=== PATIENT | female | born 1985 | race Caucasian/White ===

== ENCOUNTER 2021-05-05 12:19 | Emergency (ER) | payer MEDICAID, SELFPAY ==
[2021-05-05 12:50] VITALS: BP 147/103; PULSE 93; RESP 18; TEMP 36.8; O2SAT 96; BMI 41.5
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
== END 2021-05-05 15:42 | disposition home or self-care (01) ==
PROVIDERS: Emergency Provider Family Medicine
DX: S06.0X9A Concussion with loss of consciousness of unspecified duration, initial encounter (principal); S01.511A Laceration without foreign body of lip, initial encounter; S70.02XA Contusion of left hip, initial encounter; S00.12XA Contusion of left eyelid and periocular area, initial encounter; Y04.8XXA Assault by other bodily force, initial encounter; F17.210 Nicotine dependence, cigarettes, uncomplicated
CPT/HCPCS: 70450; 70486; 71045; 72125; 99283

== ENCOUNTER → 2021-07-12 11:21 | Outpatient (BNVA) | payer OTHER, SELFPAY | PROVIDERS: Visit Provider Nurse Practitioner | DX: Z20.822 Contact with and (suspected) exposure to COVID-19 (principal) | CPT/HCPCS: 87635 ==

== ENCOUNTER 2021-08-01 22:45 | Emergency (ER) | payer MEDICAID, SELFPAY ==
[2021-08-01 22:47] VITALS: BP 113/73; PULSE 123; RESP 19; TEMP 36.8; O2SAT 95; BMI 39.9
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
[2021-08-02 00:02] LABS: Basophils % 0.3 %; Nucleated Red Blood Cells % 0 %
[2021-08-02 00:05] LABS: Basophils # 0.1 10^3/uL (0.0-0.1); Eosinophils # 0.2 10^3/uL (0.0-0.8); Eosinophils % 1.3 %; Hematocrit 47.7 % (37.0-47.0); Hemoglobin 16.1 g/dL (11.5-15.3); Lymphocytes # 4.5 10^3/uL (0.8-4.8); Lymphocytes % 31.3 %; Mean Corpuscular HGB Conc 33.8 g/dL (30.0-36.0); Mean Corpuscular Hemoglobin 31.6 pg (28.0-34.0); Mean Corpuscular Volume 93.7 fl (81-99); Mean Platelet Volume 11.3 fL (7.4-10.4); Monocytes # 0.9 10^3/uL (0.2-0.9); Monocytes % 6.4 %; Neutrophils # 8.64 10^3/uL (1.8-7.7); Neutrophils % 60.3 %; Platelet Count 248 10^3/cmm (130-400); Red Blood Count 5.09 10^6/uL (4.1-5.3); Red Cell Distribution Width 15.7 % (12.1-15.1); White Blood Count 14.3 10^3/uL (4.0-10.0)
[2021-08-02 00:10] LABS: HCG, Serum Qual Negative (Negative)
[2021-08-02 00:14] LABS: Alanine Aminotransferase 54 U/L (0-33); Albumin Level 4.2 g/dL (3.5-5.2); Alkaline Phosphatase 97 IU/L (35-105); Anion Gap 23.7 (5-19); Aspartate Amino Transferase 51 U/L (0-32); Blood Urea Nitrogen 7 mg/dL (6-20); Calcium 7.5 mg/dL (8.5-10.5); Carbon Dioxide 18 mmol/L (22-29); Chloride 102 mmol/L (98-107); Globulin 3.1 g/dL (1.3-4.6); Glomerular Filtration Rate 81.2 mL/min (90-130); Glucose 109 mg/dL (65-115); Osmolality Calculated 289 mOsm/kg (285-295); Potassium 3.7 mmol/L (3.5-5.1); Sodium 140 mmol/L (136-145); Total Bilirubin 0.2 mg/dL (0.15-1.2); Total Protein 7.3 g/dL (6.6-8.7)
[2021-08-02] MEDS: iohexol 300 mg/mL 100 mL Btl IV (00:21)
[2021-08-02 00:43] LABS: Slide Review Slide Review Perform
[2021-08-02 01:04] VITALS: BP 110/73; PULSE 130; RESP 20; O2SAT 97
[2021-08-02] MEDS: morphine 4 mg/mL SDV 1 mL IVP ×2 (01:06→03:36)
[2021-08-02] MEDS: sodium chloride 0.9% 1,000 ML 999 ML IV (01:07)
[2021-08-02 03:37] VITALS: BP 112/74; PULSE 98; RESP 18; O2SAT 96
== END 2021-08-02 03:37 | disposition home or self-care (01) ==
PROVIDERS: Emergency Provider Emergency Medicine
DX: S41.112A Laceration without foreign body of left upper arm, initial encounter (principal); F17.210 Nicotine dependence, cigarettes, uncomplicated; V89.2XXA Person injured in unspecified motor-vehicle accident, traffic, initial encounter
CPT/HCPCS: 12005; 70450; 71260; 72125; 73070; 73090; 73110; 74177; 80053; 84703; 85025; 96361; 96374; 96376; 99283; J2270; J7030; Q9967

== ENCOUNTER 2021-08-06 11:16 | Inpatient (IN) | payer MEDICAID, SELFPAY ==
[2021-08-06] VITALS (9 sets, daily range): BP systolic 117–133; BP diastolic 72–87; PULSE 86–92; RESP 16–17; TEMP 36.6–37.2; O2SAT 97–100; BMI 43.2
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
[2021-08-06 12:37] LABS: Basophils % 0.4 %; Eosinophils # 0.2 10^3/uL (0.0-0.8); Eosinophils % 2.3 %; Hematocrit 40.8 % (37.0-47.0); Hemoglobin 13.5 g/dL (11.5-15.3); Lymphocytes # 2.3 10^3/uL (0.8-4.8); Lymphocytes % 21.7 %; Mean Corpuscular HGB Conc 33.1 g/dL (30.0-36.0); Mean Corpuscular Hemoglobin 31.3 pg (28.0-34.0); Mean Corpuscular Volume 94.7 fl (81-99); Mean Platelet Volume 11.5 fL (7.4-10.4); Monocytes # 0.6 10^3/uL (0.2-0.9); Monocytes % 5.8 %; Neutrophils # 7.35 10^3/uL (1.8-7.7); Neutrophils % 69.3 %; Nucleated Red Blood Cells % 0 %; Platelet Count 225 10^3/cmm (130-400); Red Blood Count 4.31 10^6/uL (4.1-5.3); Red Cell Distribution Width 15.6 % (12.1-15.1); White Blood Count 10.6 10^3/uL (4.0-10.0)
[2021-08-06] MEDS: tetanus-diphtheria tox (adult) 0.5 mL SDV IM (12:39)
[2021-08-06 13:04] LABS: Lactate (Lactic Acid level) 0.7 mmol/L (0.5-2.2)
[2021-08-06 13:05] LABS: Alanine Aminotransferase 52 U/L (0-33); Albumin Level 3.7 g/dL (3.5-5.2); Alkaline Phosphatase 100 IU/L (35-105); Anion Gap 17.6 (5-19); Aspartate Amino Transferase 55 U/L (0-32); Blood Urea Nitrogen 9 mg/dL (6-20); Calcium 6.4 mg/dL (8.5-10.5); Carbon Dioxide 22 mmol/L (22-29); Chloride 104 mmol/L (98-107); Globulin 2.6 g/dL (1.3-4.6); Glomerular Filtration Rate 139.6 mL/min (90-130); Glucose 74 mg/dL (65-115); Osmolality Calculated 285 mOsm/kg (285-295); Potassium 4.6 mmol/L (3.5-5.1); Sodium 139 mmol/L (136-145); Total Bilirubin 0.5 mg/dL (0.15-1.2); Total Protein 6.3 g/dL (6.6-8.7)
[2021-08-06] MEDS: iohexol 300 mg/mL 100 mL Btl IV (13:20)
[2021-08-06] MEDS: vancomycin 1,000 MG in sodium chloride 0.9% 250 ML 250 MG IV (13:27)
--- NOTE | 2021-08-06 14:10 | XR_ITS ---
WS: [id number] XR hand LT min 3V* [id number] REASON FOR EXAM: trauma; possible hamate fx on CT imaging FINDINGS: Hamate fracture cannot be identified on current or previous plain film of the wrist. The CT of the fr acture is definitive. No other significant bony or joint abnormality is identified. XR/XR hand LT min 3V* [id number] IMPRESSION: Current and previous plain film do not demonstrate the left hamate fracture. If a plain film definition of the hamate fracture is required, a carpal tunnel vi ew of the left wrist with demonstrate the abnormality.
[2021-08-06 15:19] LABS: C Reactive Protein 134.4 mg/L (0.0-4.9)
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
[2021-08-06] MEDS: morphine 4 mg/mL SDV 1 mL IVP (16:12)
--- NOTE | 2021-08-06 19:57 | PC.PHAR ---
Vancomycin is dosed at 1500mg IVPB every 8 hours to produce a predicted trough level of 13.24 (population based pharmacokinetic analysis). A trough level has been ordered from the lab to be obtained before the fourth dose to confirm and adjust if needed.
[2021-08-06] MEDS: ketorolac 30 mg/mL INJ 15 MG IVP (20:00)
[2021-08-06] MEDS: enoxaparin 40 mg/0.4 mL Syringe SUBCUT (20:01)
[2021-08-06] MEDS: TRAMadol 50 mg Tablet PO (20:01)
[2021-08-06] MEDS: nicotine 14 mg Patch 1 PATCH TRANSDERMA (20:54)
[2021-08-06] MEDS: aztreonam 2,000 MG in sodium chloride 0.9% (plus) 100 ML 200 MG IV (21:12)
[2021-08-06] MEDS: vancomycin 1,500 MG/300 ML PIGGYBACK 150 MG IV (21:42)
[2021-08-06] MEDS: clindamycin 600 MG/50 ML PREMIX 100 MG IV (23:39)
[2021-08-07] VITALS (9 sets, daily range): BP systolic 97–128; BP diastolic 66–88; PULSE 84–94; RESP 17–18; TEMP 36.6–36.9; O2SAT 94–98
[2021-08-07] MEDS: TRAMadol 50 mg Tablet PO ×2 (00:05→04:46)
[2021-08-07] MEDS: vancomycin 1,500 MG/300 ML PIGGYBACK 150 MG IV (03:52)
[2021-08-07 05:18] LABS: Basophils % 0.4 %; Eosinophils # 0.2 10^3/uL (0.0-0.8); Eosinophils % 2.5 %; Hematocrit 36.7 % (37.0-47.0); Hemoglobin 11.9 g/dL (11.5-15.3); Lymphocytes # 2.4 10^3/uL (0.8-4.8); Mean Corpuscular HGB Conc 32.4 g/dL (30.0-36.0); Mean Corpuscular Hemoglobin 31.2 pg (28.0-34.0); Mean Corpuscular Volume 96.3 fl (81-99); Mean Platelet Volume 11.2 fL (7.4-10.4); Monocytes # 0.6 10^3/uL (0.2-0.9); Monocytes % 6.9 %; Neutrophils % 61.8 %; Nucleated Red Blood Cells % 0 %; Platelet Count 204 10^3/cmm (130-400); Red Blood Count 3.81 10^6/uL (4.1-5.3); Red Cell Distribution Width 15.6 % (12.1-15.1); White Blood Count 8.6 10^3/uL (4.0-10.0)
[2021-08-07 05:39] LABS: Anion Gap 15.9 (5-19); Blood Urea Nitrogen 10 mg/dL (6-20); C Reactive Protein 78.3 mg/L (0.0-4.9); Carbon Dioxide 22 mmol/L (22-29); Chloride 103 mmol/L (98-107); Glomerular Filtration Rate 113.1 mL/min (90-130); Glucose 88 mg/dL (65-115); Osmolality Calculated 282 mOsm/kg (285-295); Potassium 3.9 mmol/L (3.5-5.1); Sodium 137 mmol/L (136-145)
[2021-08-07 05:41] LABS: Procalcitonin 2.73 ng/mL (0-0.5)
[2021-08-07 05:51] LABS: Calcium 5.7 mg/dL (8.5-10.5)
[2021-08-07] MEDS: calcium carbonate 500 mg Chew Tablet PO ×4 (06:31→23:23)
[2021-08-07] MEDS: clindamycin 600 MG/50 ML PREMIX 100 MG IV ×3 (06:31→22:51)
[2021-08-07] MEDS: morphine 4 mg/mL SDV 1 mL 1 MG IVP (07:40)
[2021-08-07] MEDS: aztreonam 2,000 MG in sodium chloride 0.9% (plus) 100 ML 200 MG IV ×2 (07:48→19:32)
[2021-08-07] MEDS: nicotine 14 mg Patch 1 PATCH TRANSDERMA (07:48)
[2021-08-07 09:11] LABS: Ionized Calcium 0.8 mmol/L (1.1-1.4)
--- NOTE | 2021-08-07 11:04 | P.PN_ITS ---
Subjective Subjective: Interval history: Patient is endorsing improvement in her hyperemia of left arm however swelling has not improved, no fever no leukocytosis, cultures pending Not endorsing nicotine craving she has nicotine patch on We will add thiamine and folic acid will give another dose of Decadron today Vitals/I&O/Wt Last Vital Signs Temp 97.8 F 08/07/21 07:35 Pulse 86 08/07/21 07:35 Resp 17 08/07/21 07:35 BP 116/80 08/07/21 07:35 Pulse Ox 98 08/07/21 07:35 08/06/21 08/07/21 08/07/21 22:59 06:59 14:59 Intake Total 240 / 490 1230 / 1720 570 / 570 Balance 240 / 490 1230 / 1720 570 / 570 Weight last 48 hrs Weight 117.934 kg Physical Exam Narrative: EXAM NARRATIVE: Patient is sitting comfortably in her bed EOMI, PERRLA Appropriate mood and affect S1, S2 No audible stridor or wheezing Saturating well on room air Left arm with purulent cellulitis Hyperemia seems to be improved and regressing from the borders, swelling from tip of fingers up to the elbow pretty much the same as yesterday I do not see severe worsening at this point, she is able to make a fist with some difficulty, nontender, blisters noticed as well No joint swelling No neurological deficits Data : 08/07/21 04:47 08/07/21 04:47 Micro: Microbiology 08/06/21 12:18 Gram Stain - Final Arm - Left Wound Culture - Preliminary 08/06/21 12:16 Blood Culture - Preliminary Blood SPECIMEN COLLECTED 08/06/21 12:15 Blood Culture - Preliminary Blood SPECIMEN COLLECTED A&P Assessment and plan (1) Obesity: Status: Acute (2) Infected laceration: Status: Acute (3) Cellulitis of arm, left: Status: Acute (4) Alcohol abuse: Status: Acute (5) Nicotine dependence: Status: Acute Additional A&P Information Purulent cellulitis of left arm Continue vancomycin aztreonam and clindamycin for today Follow-up with blood cultures No vascular compromise of left arm noticed Afebrile no leukocytosis Procalcitonin high noted CRP trending down In case of worsening of her cellulitis she will need hand surgeon/ortho for evaluation Hypocalcemia: We will give 1 g calcium gluconate, requested ionized calcium to rule out lab better Albumin 3.7 Nicotine craving: Currently has nicotine patch Alcohol abuse we will start thiamine and folic acid Full code Cardiac diet secondary to BMI DVT prophylaxis Lovenox Attestations Medical Necessity Statement*: Anticipating discharge over the weekend if she is clinically better Time Spent in Patient Care: 16 - 35 minutes Coding Level of Care Code Acute Medication Reconciliation Technician for g Fwd Diagnoses Obesity E66.9 Infected laceration T14.8XXA; L08.9 Cellulitis of arm, left L03.114 Alcohol abuse F10.10 Nicotine dependence F17.200
[2021-08-07] MEDS: HYDROmorphone 1 mg/mL INJ 1 mL 0.4 MG IVP ×4 (11:27→23:23)
[2021-08-07] MEDS: vancomycin 1,500 MG/300 ML PIGGYBACK 600 MG IV ×2 (11:27→20:45)
[2021-08-07] MEDS: dexamethasone 10 mg/mL INJ IVP (11:28)
--- NOTE | 2021-08-07 14:32 | PC.SOCIAL ---
FAA given to patient.
--- NOTE | 2021-08-07 15:34 | PC.CHAP ---
Pastoral Care Encounter/Spiritual Assessment Type of Contact [] Declined supply room clerk visit [] Patient/Family/Request visit [] Outpatient visit [] Follow-up visit [] Physician referral [] Code/Alert [] Routine visit [] Staff referral [] Actively dying [xx] Patient sleeping [] Family support [] [] Out of room [] Palliative care [] [] Receiving care in room [] Pre-surgical visit [] Trauma [] Long length of stay [] ICU visit [] Other: Relational/Emotional Strength [] Patient feels connected with others/family/visitors/staff [] Distress [] Loneliness/isolation [] Abandonment Spirituality of Patient [] Person of Juani [] Attends Advent of their [place] [] Believes in Prayer [] Reads Bible or Baptist materials [] There are Spiritual issues to be addressed Guide Dog Mobility Instructor Interventions [] Prayer [] Active listening [] Non-anxious presence [] Spiritual/emotional support [] Crisis/trauma care [] Spiritual counseling [] Bereavement support [] Provided bereavement packet [] Provided Bible/devotional materials [] Provided toy/stuffed animal, coloring book to patient or family member [] Provided Communion [] Anointing/[place] [] Salvation [] Completed spiritual assessment [] Other: Impact on Illness or Injury [] Angry [] Fearful [] Anxious [] Often cries [] Exhaustion [] Unable to work [] Unable to attend sikh [] Unable to walk/stand [] Unable to read [] Unable to drive [] Unable to eat/drink [] Unable to sleep [] Unable to be with family [] Patient intubated [] Other: Summary Patient in medicated sleep. Follow up later. Time spent with patient
--- NOTE | 2021-08-07 16:23 | PC.RESP ---
SMOKING CESSATION INFORMATION SENT TO PATIENT.
[2021-08-07] MEDS: enoxaparin 40 mg/0.4 mL Syringe SUBCUT (19:33)
[2021-08-07 19:34] LABS: Vancomycin Trough 13.6 ug/mL (10-15)
[2021-08-08] VITALS (9 sets, daily range): BP systolic 120–130; BP diastolic 68–84; PULSE 73–88; RESP 17–19; TEMP 36.4–36.8; O2SAT 94–98
[2021-08-08] MEDS: vancomycin 1,500 MG/300 ML PIGGYBACK 150 MG IV (03:28)
[2021-08-08 05:10] LABS: Basophils % 0.1 %; Hematocrit 40.9 % (37.0-47.0); Hemoglobin 13.7 g/dL (11.5-15.3); Lymphocytes # 1.4 10^3/uL (0.8-4.8); Lymphocytes % 12.7 %; Mean Corpuscular HGB Conc 33.5 g/dL (30.0-36.0); Mean Corpuscular Hemoglobin 30.8 pg (28.0-34.0); Mean Corpuscular Volume 91.9 fl (81-99); Mean Platelet Volume 11.4 fL (7.4-10.4); Monocytes # 0.5 10^3/uL (0.2-0.9); Monocytes % 4.5 %; Neutrophils # 9.07 10^3/uL (1.8-7.7); Nucleated Red Blood Cells % 0 %; Platelet Count 252 10^3/cmm (130-400); Red Blood Count 4.45 10^6/uL (4.1-5.3); White Blood Count 11.1 10^3/uL (4.0-10.0)
[2021-08-08] MEDS: HYDROmorphone 1 mg/mL INJ 1 mL 0.4 MG IVP ×2 (05:30→10:56)
[2021-08-08] MEDS: calcium carbonate 500 mg Chew Tablet PO ×4 (05:30→23:18)
[2021-08-08] MEDS: clindamycin 600 MG/50 ML PREMIX 100 MG IV ×3 (06:23→23:13)
[2021-08-08 07:02] LABS: Alanine Aminotransferase 44 U/L (0-33); Albumin Level 3.6 g/dL (3.5-5.2); Alkaline Phosphatase 108 IU/L (35-105); Anion Gap 18.5 (5-19); Aspartate Amino Transferase 29 U/L (0-32); Blood Urea Nitrogen 9 mg/dL (6-20); C Reactive Protein 56.6 mg/L (0.0-4.9); Calcium 7.6 mg/dL (8.5-10.5); Carbon Dioxide 23 mmol/L (22-29); Chloride 99 mmol/L (98-107); Globulin 3.1 g/dL (1.3-4.6); Glomerular Filtration Rate 139.6 mL/min (90-130); Glucose 109 mg/dL (65-115); Osmolality Calculated 281 mOsm/kg (285-295); Potassium 4.5 mmol/L (3.5-5.1); Sodium 136 mmol/L (136-145); Total Bilirubin 0.2 mg/dL (0.15-1.2); Total Protein 6.7 g/dL (6.6-8.7)
[2021-08-08 07:09] LABS: Procalcitonin 1.18 ng/mL (0-0.5)
[2021-08-08] MEDS: aztreonam 2,000 MG in sodium chloride 0.9% (plus) 100 ML 200 MG IV (07:34)
[2021-08-08] MEDS: thiamine 100 mg Tablet PO (07:35)
[2021-08-08] MEDS: folic acid 1 mg Tablet PO (07:35)
[2021-08-08] MEDS: sennosides-docusate Tablet 1 TAB PO (07:35)
[2021-08-08] MEDS: nicotine 14 mg Patch 1 PATCH TRANSDERMA (07:35)
--- NOTE | 2021-08-08 13:23 | PM.PN ---
Subjective Subjective: Interval history: Patient seen and examined this morning. There were no acute events overnight. 1 out of 3 occult blood culture bottles positive for gram-positive bacilli. Patient states her arm is appearing worse to her and the wound has worsened as well. She is now having puslike discharge. Afebrile overnight vitals stable no other complaints at this point. Vitals/I&O/Wt Last Vital Signs Temp 97.6 F 08/08/21 12:00 Pulse 79 08/08/21 12:00 Resp 18 08/08/21 12:00 BP 130/84 08/08/21 12:00 Pulse Ox 96 08/08/21 12:00 08/07/21 08/08/21 08/08/21 22:59 06:59 14:59 Intake Total 690 / 2040 350 / 2390 510 / 510 Balance 690 / 2040 350 / 2390 510 / 510 Physical Exam Narrative: EXAM NARRATIVE: General: Alert oriented x3, patient seen sitting up in bed appearing comfortable. HEENT: Normocephalic, atraumatic, EOMI, breathing room air Cardio: Regular rate rhythm, normal S1-S2, Respiratory: Good bilateral air entry, no wheezes no rhonchi appreciated GI: Abdomen soft, nontender, Behavior: Appropriate and cooperative Extremities: No edema or cyanosis Skin: Left arm with purulent cellulitis. Hyperemia seems to be improving compared to admission and has regressed significantly from the borders. Swelling of hand and left arm is also decreased compared to admission. Patient able to make a fist skilled nursing at this point with some difficulty. Few blisters noted on her arm as well draining pus and serosanguineous discharge. Sutured wounds appear worsened compared to admission. Data : 08/08/21 04:36 08/08/21 06:06 Micro: Microbiology 08/08/21 12:01 Blood Culture - Preliminary Blood SPECIMEN COLLECTED 08/08/21 11:57 Blood Culture - Preliminary Blood SPECIMEN COLLECTED 08/06/21 12:18 Gram Stain - Final Arm - Left Wound Culture - Preliminary 08/06/21 12:15 Blood Culture - Preliminary Blood 08/06/21 12:16 Blood Culture - Preliminary Blood NEGATIVE TO DATE A&P Assessment and plan (1) Cellulitis of arm, left: Status: Acute (2) Infected laceration: Status: Acute (3) Nicotine dependence: Status: Acute (4) Alcohol abuse: Status: Acute (5) Obesity: Status: Acute Additional A&P Information Blood culture 1 out of 3 bottles positive for gram-positive bacilli. Most likely a contaminant but will repeat blood culture x2 today. Wound culture showed rare gram-negative rods. We will discontinue aztreonam and vancomycin. We will continue patient on IV clindamycin for now. We will follow up on new blood cultures. No concern for compartment syndrome at this time as overall arm looks improved but the wounds have worsened. Patient has been afebrile with no leukocytosis. Will consult surgery for evaluation for debridement at this point. Case discussed with Dr. Najera on-call surgeon. Will await further recommendations. We will continue nicotine patch for now. Patient states is helping and she does not require anything more at this point. We will continue thiamine and folic acid for alcoholic history Fluids: Not indicated at this point Electrolytes: Replete as needed Nutrition: Cardiac diet secondary to high BMI Activity: Patient may ambulate at will DVT prophylaxis: Lovenox. Attestations Medical Necessity Statement*: Wound has worsened. Patient may require surgical debridement. Have consulted surgery will await further recommendations. Coding Level of Care Code Acute Tanbark Peeler for g Roni Diagnoses Cellulitis of arm, left L03.114 Infected laceration T14.8XXA; L08.9 Nicotine dependence F17.200 Alcohol abuse F10.10 Obesity E66.9
[2021-08-08] MEDS: ibuprofen 800 mg tablet PO (15:09)
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
[2021-08-08] MEDS: morphine IR 15 mg Tablet PO (17:08)
[2021-08-08] MEDS: enoxaparin 40 mg/0.4 mL Syringe SUBCUT (20:08)
[2021-08-09] VITALS (13 sets, daily range): BP systolic 95–143; BP diastolic 58–97; PULSE 75–92; RESP 16–18; TEMP 36.4–36.8; O2SAT 93–99
[2021-08-09] MEDS: morphine IR 15 mg Tablet PO ×2 (01:23→09:34)
[2021-08-09] MEDS: calcium carbonate 500 mg Chew Tablet PO ×4 (05:48→23:16)
[2021-08-09 05:51] LABS: Basophils % 0.5 %; Eosinophils # 0.1 10^3/uL (0.0-0.8); Eosinophils % 0.7 %; Hematocrit 39.3 % (37.0-47.0); Hemoglobin 12.8 g/dL (11.5-15.3); Lymphocytes # 3.1 10^3/uL (0.8-4.8); Lymphocytes % 37.3 %; Mean Corpuscular HGB Conc 32.6 g/dL (30.0-36.0); Mean Corpuscular Volume 95.2 fl (81-99); Monocytes # 0.5 10^3/uL (0.2-0.9); Neutrophils # 4.48 10^3/uL (1.8-7.7); Neutrophils % 53.8 %; Nucleated Red Blood Cells % 0 %; Platelet Count 256 10^3/cmm (130-400); Red Blood Count 4.13 10^6/uL (4.1-5.3); Red Cell Distribution Width 15.7 % (12.1-15.1); White Blood Count 8.3 10^3/uL (4.0-10.0)
[2021-08-09] MEDS: clindamycin 600 MG/50 ML PREMIX 100 MG IV ×3 (06:10→23:08)
[2021-08-09 06:26] LABS: Anion Gap 16.9 (5-19); Blood Urea Nitrogen 12 mg/dL (6-20); Calcium 8.1 mg/dL (8.5-10.5); Carbon Dioxide 23 mmol/L (22-29); Chloride 103 mmol/L (98-107); Glomerular Filtration Rate 113.1 mL/min (90-130); Glucose 74 mg/dL (65-115); Osmolality Calculated 284 mOsm/kg (285-295); Potassium 4.9 mmol/L (3.5-5.1); Sodium 138 mmol/L (136-145)
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
[2021-08-09] MEDS: sodium chloride 0.9% 1,000 ML 30 ML IV (07:48)
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
[2021-08-09 07:53] LABS: Slide Review Slide Review Perform
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
--- NOTE | 2021-08-09 08:47 | ANE.PACU2 ---
Inpatient post-anesthesia follow up: Airway intact: Yes Vital signs: Temperature 98.2 F Pulse Rate [Left R adial] 88 Pulse Rate [Monito r] 90 Pulse Rate 79 Respiratory Rate 18 Blood Pressure [Le ft Arm] 125/87 Blood Pressure 143/74 Pulse Oximetry 94 Oxygen Delivery Me thod Room Air Oxygen Flow Rate Fraction of Inspir ed Oxygen Hydration adequate: Yes Nausea and vomiting: No Pain level: 2 Mental status: Baseline
[2021-08-09] MEDS: morphine 4 mg/mL SDV 1 mL 1 MG IVP ×2 (11:24→21:24)
--- NOTE | 2021-08-09 12:05 | PM.PN ---
Subjective Subjective: Interval history: Patient seen and examined status post department procedure from this morning. She was sitting up in bed with arm wrapped in bandage. She stated that for the most part she is comfortable but her arm is starting to hurt now that the anesthesia has worn off. She can also feel her heartbeat in her arm at this point. She states she was given oral morphine yesterday but that made her vomit and nauseated and would not like to take that again. However this morning she had hydrocodone ordered by Dr. Najera but she opted to take the oral morphine instead. She would like her medication changed to IV if possible. Patient also feels that she is wheezing a little bit today. She has no other complaints at this time. Vitals/I&O/Wt Last Vital Signs Temp 98.2 F 08/09/21 08:40 Pulse 79 08/09/21 08:40 Resp 18 08/09/21 11:24 BP 143/74 08/09/21 08:40 Pulse Ox 94 08/09/21 08:40 08/08/21 08/09/21 08/09/21 22:59 06:59 14:59 Intake Total 320 / 1190 250 / 1440 142 / 142 Output Total 320 / 320 10 / 10 Balance 320 / 1190 -70 / 1120 132 / 132 Physical Exam Narrative: EXAM NARRATIVE: General: Alert oriented x3, patient seen sitting up in bed appearing comfortable. HEENT: Normocephalic, atraumatic, EOMI, breathing room air Cardio: Regular rate rhythm, normal S1-S2, Respiratory: Good bilateral air entry, mild wheezes heard at the bases bilaterally. GI: Abdomen soft, nontender, Behavior: Appropriate and cooperative Extremities: No edema or cyanosis Skin: Left arm with purulent cellulitis. Unable to examine the arm today due to Band-Aid. She is status post debridement procedure from 2 hours ago. I will take a look at the arm tomorrow when there is dressing change being done.. Data : 08/09/21 04:55 08/09/21 04:55 Micro: Microbiology 08/06/21 12:18 Gram Stain - Final Arm - Left Wound Culture - Final 08/08/21 12:01 Blood Culture - Preliminary Blood SPECIMEN COLLECTED 08/08/21 11:57 Blood Culture - Preliminary Blood SPECIMEN COLLECTED A&P Assessment and plan (1) Cellulitis of arm, left: Status: Acute (2) Infected laceration: Status: Acute (3) Nicotine dependence: Status: Acute (4) Alcohol abuse: Status: Acute (5) Obesity: Status: Acute Additional A&P Information Blood culture 1 out of 3 bottles positive for gram-positive bacilli. Most likely a contaminant. Repeat blood cultures are negative to date so far. Wound culture showed rare gram-negative rods. Continue patient on IV clindamycin for now. Patient has been afebrile with no leukocytosis. Patient is status post wound debridement procedure with Dr. Najera this morning. I will switch her pain medication to IV morphine just for today and switch to an NSAID by tomorrow. I will add a DuoNeb treatment for patient wheezing today. She does use albuterol MDI at home as needed. We will continue nicotine patch for now. Patient states is helping and she does not require anything more at this point. We will continue thiamine and folic acid for alcoholic history Fluids: Not indicated at this point Electrolytes: Replete as needed Nutrition: Cardiac diet secondary to high BMI Activity: Patient may ambulate at will DVT prophylaxis: Lovenox. Attestations Medical Necessity Statement*: Status post wound debridement procedure today. Planning for discharge tomorrow. Time Spent in Patient Care: less than 15 minutes Coding Level of Care Code Acute Youth Development Specialist for Roxanna Tamayo Diagnoses Cellulitis of arm, left L03.114 Infected laceration T14.8XXA; L08.9 Nicotine dependence F17.200 Alcohol abuse F10.10 Obesity E66.9
[2021-08-09] MEDS: ipratropium-albuterol 3 mL Neb INHALATION (14:50)
[2021-08-09] MEDS: HYDROcodone-acetaminophen 5-325 mg Tablet 1 TAB PO ×2 (15:17→20:02)
[2021-08-09] MEDS: enoxaparin 40 mg/0.4 mL Syringe SUBCUT (20:03)
[2021-08-10 03:00] VITALS: BP 106/67; PULSE 67; RESP 18; TEMP 36.6; O2SAT 96
[2021-08-10] MEDS: HYDROcodone-acetaminophen 5-325 mg Tablet 1 TAB PO ×2 (03:19→07:18)
[2021-08-10] MEDS: calcium carbonate 500 mg Chew Tablet PO (06:31)
[2021-08-10] MEDS: clindamycin 600 MG/50 ML PREMIX 100 MG IV (06:31)
[2021-08-10 07:36] VITALS: BP 123/85; PULSE 69; RESP 18; TEMP 36.6; O2SAT 95
--- NOTE | 2021-08-10 08:13 | PM.PN ---
Subjective Subjective: Interval history: Patient has been complaining of pain but no fevers or chills Vitals/I&O/Wt Last Vital Signs Temp 97.9 F 08/10/21 07:36 Pulse 69 08/10/21 07:36 Resp 18 08/10/21 07:36 BP 123/85 08/10/21 07:36 Pulse Ox 95 08/10/21 07:36 08/09/21 08/10/21 08/10/21 22:59 06:59 14:59 Intake Total 410 / 842 50 / 842 Output Total 300 / 310 Balance 110 / 532 50 / 532 Physical Exam Narrative: EXAM NARRATIVE: Left forearm: swelling is improved, no significant cellulitis, wound has no significant necrotic tissue, good granulation tissue at the base Data : 08/09/21 04:55 08/09/21 04:55 Micro: Microbiology 08/06/21 12:15 Blood Culture - Preliminary Blood Corynebacterium species 08/08/21 12:01 Blood Culture - Preliminary Blood NEGATIVE TO DATE 08/08/21 11:57 Blood Culture - Preliminary Blood NEGATIVE TO DATE 08/06/21 12:18 Gram Stain - Final Arm - Left Wound Culture - Final A&P Assessment and plan (1) S/P excisional debridement: overall doing well daily dressing change Follow up in wound care later this week oral antibiotics per primary Status: Acute Attestations Medical Necessity Statement*: s/p wound debridement Coding Level of Care Code Acute Television Announcer for Felicianog Fwd Diagnoses S/P excisional debridement Z98.890
[2021-08-10] MEDS: sennosides-docusate Tablet 1 TAB PO (09:02)
[2021-08-10] MEDS: folic acid 1 mg Tablet PO (09:02)
[2021-08-10] MEDS: nicotine 14 mg Patch 1 PATCH TRANSDERMA (09:02)
[2021-08-10] MEDS: thiamine 100 mg Tablet PO (09:02)
[2021-08-10] MEDS: doxycycline 100 mg Tablet PO (09:30)
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
[2021-08-10 11:50] VITALS: BP 114/89; PULSE 74; RESP 16; TEMP 36.9; O2SAT 96
--- NOTE | 2021-08-10 12:03 | PM.MISC ---
Miscellaneous Note Purpose of Documentation: Work excuse note for 6 weeks Note: Patient was admitted for management of cellulitis of her left arm, cellulitis has been worsening she required IV antibiotics, status post debridement of 5 ulcers, she does have open wounds which are deep and at risk of contamination and bacteremia. She will need 6 weeks of rest at least for appropriate healing of wound and recuperation at home. Please call [facility] if you have any questions or queries regarding her health.
[2021-08-10 12:17] VITALS: BP 114/89; PULSE 74; RESP 16; TEMP 36.9; O2SAT 96
--- NOTE | 2021-08-12 13:41 | PC.SOCIAL ---
discharge follow up call made. patient reports she is doing good. patient is taking antibiotics as prescribed, is having a slight rash, denies sob, chest pain, took benadryl which helped w itching. advised patient to stop taking if rash worsened or is she became short of breath. patient has follow up appointments with pcp and dr. rivas. she is aware of those dates and times. went over wound care. patient is keeping wound from getting wet and using barrier creams.
--- NOTE | 2021-08-13 14:27 | DCPLANNER ---
social media sr strategy manager had message to schedule a follow up appointment for patient with ortho when discharged from hospital. social media sr strategy manager called the ortho clinic, spoke with Nicki, gave clinic patients information. social media sr strategy manager was told that patients information would be printed and reviewed. Clinic will call patient with appointment information.
--- NOTE | 2021-08-27 14:39 | DCPLANNER ---
Patient had a follow up appointment scheduled for 08.26.[address] Montez - patient did attend appointment.
== END 2021-08-10 12:18 | disposition home or self-care (01) | DRG 571 ==
LOC: ER 14:50 → MEDSURG 18:41
PROVIDERS: Emergency Medicine; Internal Medicine; Surgery; Admitting Provider Internal Medicine; Emergency Provider Physician Assistant; Visit Provider Internal Medicine
PROC: 0JBF0ZZ Excision of Left Upper Arm Subcutaneous Tissue and Fascia, Open Approach (ICD-10-PCS; principal; 2021-08-09 08:00)
DX: L03.114 Cellulitis of left upper limb (principal); Z68.41 Body mass index [BMI] 40.0-44.9, adult; S41.112D Laceration without foreign body of left upper arm, subsequent encounter; B96.89 Other specified bacterial agents as the cause of diseases classified elsewhere; V89.2XXD Person injured in unspecified motor-vehicle accident, traffic, subsequent encounter; F17.210 Nicotine dependence, cigarettes, uncomplicated; S40.022D Contusion of left upper arm, subsequent encounter; S62.145D Nondisplaced fracture of body of hamate [unciform] bone, left wrist, subsequent encounter for fracture with routine healing; E66.9 Obesity, unspecified; F10.10 Alcohol abuse, uncomplicated; E83.51 Hypocalcemia
CPT/HCPCS: 36415; 73130; 73201; 80048; 80053; 80202; 82330; 83605; 84145; 85025; 86140; 87040; 87070; 87075; 87205; 90471; 90714; 93971; 94640; 96365; 96372; 96375; 99285; J0610; J1100; J1170; J1650; J1885; J2270; J2405; J2704; J3010; J3370; J3490; J7030; J7050; Q9967

== ENCOUNTER 2021-08-26 15:57 | Outpatient (CLI) | payer MEDICAID, SELFPAY | END 2021-08-26 15:58 | disposition home or self-care (01) | LOC: SPT 15:57 | PROVIDERS: Visit Provider Orthopaedic Surgery | DX: Z46.89 Encounter for fitting and adjustment of other specified devices (principal); S62.142D Displaced fracture of body of hamate [unciform] bone, left wrist, subsequent encounter for fracture with routine healing; X58.XXXD Exposure to other specified factors, subsequent encounter | CPT/HCPCS: 97760; L3984 ==

== ENCOUNTER 2022-02-05 10:45 | Outpatient (CLI) | payer MEDICAID, SELFPAY ==
--- NOTE | 2022-02-05 11:05 | XR_ITS ---
WS: [id number] XR lumbar spine 6V w f/e [id number] REASON FOR EXAM: VERTEBROGENIC LOW BACK PAIN FINDINGS: Normal alignment of the lumbar spine in the AP and lateral views. No no significant lumbar vertebral body compression deformity or focal lesion. Small anterior osteoph ytes L3-L5. Intervertebral disc spaces are relatively well preserved with mild narrowing of the L4-L5 and L5-S1 d isc spaces. Bilateral spondylolysis at L5-S1. Confirmed by lumbar evaluation of CT scan of the abdomen of 08/02/20 21. No significant spondylolisthesis. No abnormal vertebral body movement with flexion and extension. XR/XR lumbar spine 6V w f/e [id number] IMPRESSION: Mild changes of degenerative spondylosis. Spondylolysis at L5-S1.
== END 2022-02-05 10:46 | disposition home or self-care (01) ==
PROVIDERS: PCP Family Medicine; Visit Provider Family Medicine
DX: M54.51 Vertebrogenic low back pain (principal); M47.817 Spondylosis without myelopathy or radiculopathy, lumbosacral region
CPT/HCPCS: 72114

== ENCOUNTER 2022-07-27 15:59 | Outpatient (CLI) | payer MEDICAID, SELFPAY ==
--- NOTE | 2022-07-27 16:13 | XRR_ITS ---
PROCEDURE INFORMATION: Exam: XR Left Knee Exam date and time: 07/27/2022 4:14 PM Age: 37 years old Clinical indication: Pain; Knee; Left; Additional info: Pain in left knee TECHNIQUE: Imaging protocol: Radiologic exam of the Left knee. Views: 3 views. COMPARISON: No relevant prior studies available. FINDINGS: Bones/joints: Bones and joints intact. No joint effusion. Soft tissues: No acute soft tissue finding. XR/XR knee LT 3V* [id number] IMPRESSION: No acute finding.
== END 2022-07-27 16:00 | disposition home or self-care (01) ==
PROVIDERS: PCP Family Medicine; Visit Provider Family Medicine
DX: M25.562 Pain in left knee (principal)
CPT/HCPCS: 73562

== ENCOUNTER 2023-02-17 12:55 | Emergency (ER) | payer MEDICAID, SELFPAY ==
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
[2023-02-17 14:01] VITALS: BP 126/86; PULSE 88; RESP 16; TEMP 36.7; O2SAT 98
[2023-02-17] MEDS: dexamethasone 10 mg/mL INJ IM (14:03)
[2023-02-17] MEDS: orphenadrine 30 mg/mL Inj 2 mL 60 MG IM (14:04)
[2023-02-17] MEDS: ketorolac 60 mg/2 mL INJ IM (14:07)
== END 2023-02-17 14:23 | disposition home or self-care (01) ==
PROVIDERS: Emergency Provider Physician Assistant; PCP Family Medicine
DX: M54.32 Sciatica, left side (principal); F17.210 Nicotine dependence, cigarettes, uncomplicated
CPT/HCPCS: 96372; 99284; J1100; J1885; J2360

== ENCOUNTER 2023-03-01 13:09 | Outpatient (CLI) | payer MEDICAID, SELFPAY ==
--- NOTE | 2023-03-01 13:51 | XR_ITS ---
WS: [id number] EXAMINATION: XR lumbar spine 2-3V* [id number] L-SPINE : 3 views REASON FOR EXAM: SCIATICA, LEFT COMPARISON: 02/05/2022 ORDER DATE: 03/01/2023 2:06 PM FINDINGS: The lumbar vertebral bodies and the disc spaces are normal in width except for mild narrowing at L4-5 .. There are small marginal osteophytes at the endplates in the lower lumbar region In the lumbar tonya tebra, there is no evidence of compression deformities or spondylolisthesis. The lateral projection d oes not appear to be a true lateral based on the rib and pedicle alignments and therefore cannot accu rately assess the patency of the spinal canal XR/XR lumbar spine 2-3V* [id number] IMPRESSION: Minor degenerative changes as noted with minor disc narrowing at L4-5.
--- NOTE | 2023-03-01 13:52 | XR_ITS ---
WS: [id number] EXAMINATION: XR hip LT 2-3V wo/w pel* [id number] REASON FOR EXAM: PAIN IN LEFT HIP COMPARISON: None available. ORDER DATE: 03/01/2023 2:06 PM TECHNIQUE: Frontal internal/external rotation views of the left hip were obtained. X-RAY FINDINGS: There are no fractures or dislocations. Normal motion with internal/external rotation is present. No degenerative changes. XR/XR hip LT 2-3V wo/w pel* [id number] IMPRESSION: 1. No fractures or dislocations of the left hip. 2. Normal motion with internal/external rotation.
== END 2023-03-01 13:10 | disposition home or self-care (01) ==
LOC: RAD 13:21
PROVIDERS: PCP Family Medicine; Visit Provider Family Medicine
DX: M54.32 Sciatica, left side (principal); M25.552 Pain in left hip; M48.061 Spinal stenosis, lumbar region without neurogenic claudication
CPT/HCPCS: 72100; 73502

== ENCOUNTER 2023-07-22 10:23 | Emergency (ER) | payer MEDICAID, SELFPAY ==
[2023-07-22 10:49] VITALS: BMI 38.2
[2023-07-22 10:51] VITALS: BP 125/85; PULSE 91; RESP 18; TEMP 36.9; O2SAT 98
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
[2023-07-22 11:45] LABS: Basophils % 0.3 %; Eosinophils # 0.1 10^3/uL (0.0-0.8); Eosinophils % 1.5 %; Hematocrit 40.9 % (36-47); Lymphocytes # 2.7 10^3/uL (0.8-4.8); Lymphocytes % 30.2 %; Mean Corpuscular HGB Conc 33.7 g/dL (30-55); Mean Corpuscular Hemoglobin 32.4 pg (27-33); Mean Platelet Volume 9.7 fL (7.4-10.4); Monocytes # 0.4 10^3/uL (0.2-0.9); Monocytes % 4.6 %; Neutrophils # 5.59 10^3/uL (1.8-7.7); Neutrophils % 62.8 %; Nucleated Red Blood Cells % 0 %; Platelet Count 195 10^3/cmm (157-399); Red Blood Count 4.26 10^6/uL (3.85-5.65); Red Cell Distribution Width 17.6 % (12.1-15.1)
[2023-07-22 12:12] LABS: Alanine Aminotransferase 20 U/L (0-33); Alkaline Phosphatase 99 U/L (35-105); Anion Gap 16.5 (5-19); Aspartate Amino Transferase 22 U/L (0-32); Blood Urea Nitrogen 8 mg/dL (6-20); Carbon Dioxide 26 mmol/L (22-29); Chloride 102 mmol/L (98-107); Creatinine Clr Calc Pharmacy 130.6184; Globulin 2.7 g/dL (1.3-4.6); Glomerular Filtration Rate 93.6 mL/min (90-130); Glucose 94 mg/dL (65-115); Osmolality Calculated 290 mOsm/kg (285-295); Potassium 3.5 mmol/L (3.5-5.1); Sodium 141 mmol/L (136-145); Total Bilirubin 0.5 mg/dL (0.15-1.2); Total Protein 6.7 g/dL (6.6-8.7)
[2023-07-22 12:14] LABS: Calcium 5.1 mg/dL (8.5-10.5)
[2023-07-22 12:38] LABS: Magnesium 1.6 mg/dL (1.7-2.3); Phosphorus 5.2 mg/dL (2.5-4.5)
[2023-07-22] MEDS: calcium gluconate 0.9% NaCL 1 GM/50 ML PREMIX IV ×2 (12:53→13:24)
[2023-07-22 12:58] VITALS: BP 135/84; PULSE 82; RESP 17; O2SAT 99
--- NOTE | 2023-07-22 13:03 | ECG_ITS ---
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 Measurements Intervals [place] Rate: 71 P: 37 [place]: 156 QRS: 13 QRSD: 82 T: 23 QT: 474 QTc: 515 Interpretive Statements SINUS RHYTHM POSSIBLE RIGHT VENTRICULAR CONDUCTION DELAY [RSR (QR) IN V1/V2] PROLONGED QT INTERVAL No previous ECG available for comparison Electronically Signed On 07-22-2023 13:31:38 CDT by Le Leon M.D. [email or web address]
[2023-07-22] MEDS: nicotine 21 mg Patch 1 PATCH TRANSDERMA (13:06)
[2023-07-22 13:29] LABS: Ionized Calcium 0.6 mmol/L (1.1-1.4)
[2023-07-22 14:00] VITALS: BP 138/92; PULSE 83; O2SAT 99
[2023-07-22 14:34] LABS: Anion Gap 15.6 (5-19); Blood Urea Nitrogen 8 mg/dL (6-20); Carbon Dioxide 27 mmol/L (22-29); Chloride 103 mmol/L (98-107); Creatinine Clr Calc Pharmacy 152.3881; Glomerular Filtration Rate 111.9 mL/min (90-130); Glucose 85 mg/dL (65-115); Osmolality Calculated 292 mOsm/kg (285-295); Potassium 3.6 mmol/L (3.5-5.1); Sodium 142 mmol/L (136-145)
[2023-07-22 14:35] LABS: Calcium 5.9 mg/dL (8.5-10.5)
[2023-07-22 15:03] VITALS: BP 138/92; PULSE 83; O2SAT 99
== END 2023-07-22 15:05 | disposition home or self-care (01) ==
PROVIDERS: Emergency Provider Emergency Medicine; PCP Family Medicine
DX: E83.51 Hypocalcemia (principal); F17.210 Nicotine dependence, cigarettes, uncomplicated
CPT/HCPCS: 36415; 80048; 80053; 82330; 83735; 84100; 85025; 93005; 96365; 99284; J0610

== ENCOUNTER 2023-07-29 11:21 | Emergency (ER) | payer MEDICAID, SELFPAY ==
[2023-07-29 11:27] VITALS: BP 165/106; PULSE 107; RESP 24; TEMP 36.4; O2SAT 96; BMI 42.5
--- NOTE | 2023-07-29 11:27 | ECG_ITS ---
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 Measurements Intervals [place] Rate: 111 P: 47 ND: 142 QRS: 2 QRSD: 76 T: 31 QT: 346 QTc: 471 Interpretive Statements SINUS TACHYCARDIA LOW QRS VOLTAGE IN PRECORDIAL LEADS [QRS DEFLECTION < 1.0 mV IN CHEST LEADS] ABNORMAL RHYTHM ECG Compared to ECG 07/22/2023 13:03:12 Low QRS voltage now present Sinus rhythm no longer present Prolonged QT interval no longer present Electronically Signed On 07-29-2023 17:22:33 CDT by Dara Alba M.D. [id number]
--- NOTE | 2023-07-29 12:42 | XR_ITS ---
WS: [id number] Portable AP upright chest, 07/29/2023 Clinical Data: chest pain Comparison: Portable chest, 05/05/2021 Findings: No nodules, masses or effusions are seen. The heart is normal. The pulmonary vascularity is not increased. No pneumonia or pneumothorax is seen. Monitor leads are on the chest wall. Impression: Negative chest.
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
--- NOTE | 2023-07-29 13:20 | CT_ITS ---
WS: [id number] CTA OF THE CHEST WITH PULMONARY EMBOLISM PROTOCOL TECHNIQUE: High-resolution contrast enhanced CTA of the chest with coronal and sagittal reformatted i daphnies with pulmonary embolism protocol. MIP images are also reviewed. CLINICAL INFORMATION: chest pain, SOB COMPARISON: None. DLP: 457.[address] scans at [facility] use at least one of these dose optimization techniques: automated e xposure control; mA and/or kV adjustment per patient size (includes targeted exams where dose is matc hed to clinical indication); or iterative reconstruction. FINDINGS: Shallow inspiration. Hazy groundglass infiltrates throughout both lungs worse in the lung bases. Emiliano mmend correlation for viral pneumonia including COVID-19 pneumonia. Proximal main pulmonary arteries are normal. Normal segmental and subsegmental pulmonary arteries. So me images are degraded in the lung bases due to respiratory motion. No evidence of pulmonary embolus. Mild perihilar bronchovascular thickening. No mediastinal or hilar lymphadenopathy. Adrenal glands are normal. Mild splenomegaly. Mild hepatomegaly. Normal GE junction. Celiac and SMA are patent. Cholecystectomy clips. IMPRESSION: 1. Shallow inspiration. 2. Hazy groundglass infiltrates worse in the perihilar regions and lung bases. Recommend correlation for viral pneumonia including COVID-19 pneumonia. 3. No focal consolidation or pleural fluid. 4. No evidence of pulmonary embolus considering respiratory motion. 5. Mild hepatomegaly and splenomegaly.
[2023-07-29 13:33] LABS: Basophils % 0.2 %; Eosinophils # 0.1 10^3/uL (0.0-0.8); Eosinophils % 0.7 %; Hematocrit 43.5 % (36-47); Lymphocytes # 2.7 10^3/uL (0.8-4.8); Lymphocytes % 21.3 %; Mean Corpuscular HGB Conc 34.3 g/dL (30-55); Mean Corpuscular Hemoglobin 33.6 pg (27-33); Mean Platelet Volume 10.3 fL (7.4-10.4); Monocytes # 0.8 10^3/uL (0.2-0.9); Neutrophils # 8.99 10^3/uL (1.8-7.7); Neutrophils % 71.3 %; Nucleated Red Blood Cells % 0.2 %; Platelet Count 248 10^3/cmm (157-399); Red Blood Count 4.44 10^6/uL (3.85-5.65); Red Cell Distribution Width 18.7 % (12.1-15.1); White Blood Count 12.62 10^3/uL (3.29-11.43)
[2023-07-29 13:54] LABS: Alanine Aminotransferase 20 U/L (0-33); Albumin Level 4.3 g/dL (3.5-5.2); Alkaline Phosphatase 92 U/L (35-105); Anion Gap 19.4 (5-19); Aspartate Amino Transferase 21 U/L (0-32); Blood Urea Nitrogen 9 mg/dL (6-20); Calcium 7.2 mg/dL (8.5-10.5); Carbon Dioxide 22 mmol/L (22-29); Chloride 94 mmol/L (98-107); Globulin 3.1 g/dL (1.3-4.6); Glomerular Filtration Rate 111.9 mL/min (90-130); Glucose 80 mg/dL (65-115); Osmolality Calculated 270 mOsm/kg (285-295); Potassium 4.4 mmol/L (3.5-5.1); Sodium 131 mmol/L (136-145); Total Bilirubin 0.8 mg/dL (0.15-1.2); Total Protein 7.4 g/dL (6.6-8.7)
[2023-07-29 13:55] LABS: Troponin T (5th) Once 6 ng/L (0-10)
[2023-07-29] MEDS: iohexol 350 mg/mL 500 mL Btl (per mL) IV (14:37)
[2023-07-29 15:00] VITALS: BP 134/85; PULSE 84; RESP 12; O2SAT 100
[2023-07-29 17:25] VITALS: BP 131/74; PULSE 96; RESP 21; O2SAT 98
== END 2023-07-29 17:26 | disposition home or self-care (01) ==
PROVIDERS: Physician Assistant; Emergency Provider Family Medicine; PCP Family Medicine
DX: R07.89 Other chest pain (principal); F17.210 Nicotine dependence, cigarettes, uncomplicated
CPT/HCPCS: 36415; 71045; 71275; 80053; 84484; 85025; 93005; 99285; Q9967

== ENCOUNTER 2023-08-12 08:48 | Outpatient (CLI) | payer MEDICAID, SELFPAY ==
[2023-08-12 09:26] LABS: Ionized Calcium 0.8 mmol/L (1.1-1.4)
[2023-08-12 09:55] LABS: Anion Gap 16.2 (5-19); Blood Urea Nitrogen 8 mg/dL (6-20); Calcium 6.2 mg/dL (8.5-10.5); Carbon Dioxide 28 mmol/L (22-29); Chloride 100 mmol/L (98-107); Glomerular Filtration Rate 93.6 mL/min (90-130); Glucose 87 mg/dL (65-115); Osmolality Calculated 288 mOsm/kg (285-295); Phosphorus 6.6 mg/dL (2.5-4.5); Potassium 4.2 mmol/L (3.5-5.1); Sodium 140 mmol/L (136-145)
[2023-08-12 09:56] LABS: Magnesium 1.7 mg/dL (1.7-2.3)
== END 2023-08-12 08:49 | disposition home or self-care (01) ==
PROVIDERS: PCP Family Medicine; Visit Provider Family Medicine
DX: E83.51 Hypocalcemia (principal)
CPT/HCPCS: 36415; 80048; 82330; 83735; 84100

== ENCOUNTER 2023-08-12 11:44 | Emergency (ER) | payer MEDICAID, SELFPAY ==
[2023-08-12 12:41] VITALS: BP 129/87; PULSE 100; RESP 18; TEMP 36.7; O2SAT 98; BMI 42.7
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
[2023-08-12] MEDS: calcium gluconate 0.9% NaCL 1 GM/50 ML PREMIX IV ×4 (16:55→19:02)
[2023-08-12] MEDS: calcium carbonate 500 mg Chew Tablet 1000 MG PO (16:55)
[2023-08-12 17:12] VITALS: PULSE 90; RESP 17; O2SAT 99
[2023-08-12 18:23] VITALS: PULSE 94; RESP 26; O2SAT 98
[2023-08-12 19:50] VITALS: PULSE 89; O2SAT 99
== END 2023-08-12 19:51 | disposition home or self-care (01) ==
PROVIDERS: Emergency Provider Emergency Medicine; PCP Family Medicine
DX: E83.51 Hypocalcemia (principal); E83.39 Other disorders of phosphorus metabolism; F17.210 Nicotine dependence, cigarettes, uncomplicated
CPT/HCPCS: 96365; 96366; 99284; J0610

== ENCOUNTER → 2023-08-16 09:19 | Outpatient (BNVA) | payer MEDICAID, SELFPAY | PROVIDERS: PCP Family Medicine; Visit Provider Internal Medicine | DX: E83.51 Hypocalcemia (principal); E83.39 Other disorders of phosphorus metabolism; E83.42 Hypomagnesemia | CPT/HCPCS: 36415; 80053; 82310; 82330; 83735; 83970; 84100 ==

== ENCOUNTER → 2023-08-30 12:32 | Outpatient (BNVA) | payer MEDICAID, SELFPAY | PROVIDERS: PCP Family Medicine; Visit Provider Internal Medicine | DX: E83.42 Hypomagnesemia (principal); E55.9 Vitamin D deficiency, unspecified | CPT/HCPCS: 36415; 80053; 82306; 83735; 84100 ==

== ENCOUNTER 2023-09-12 14:31 | Outpatient (CLI) | payer MEDICAID, SELFPAY ==
[2023-09-12 15:16] LABS: Alanine Aminotransferase 14 U/L (0-33); Albumin Level 4.2 g/dL (3.5-5.2); Alkaline Phosphatase 80 U/L (35-105); Anion Gap 13.9 (5-19); Aspartate Amino Transferase 14 U/L (0-32); Blood Urea Nitrogen 12 mg/dL (6-20); Calcium 8.5 mg/dL (8.5-10.5); Carbon Dioxide 27 mmol/L (22-29); Chloride 101 mmol/L (98-107); Globulin 2.6 g/dL (1.3-4.6); Glomerular Filtration Rate 70.1 mL/min (90-130); Glucose 78 mg/dL (65-115); Osmolality Calculated 285 mOsm/kg (285-295); Phosphorus 4.6 mg/dL (2.5-4.5); Potassium 3.9 mmol/L (3.5-5.1); Sodium 138 mmol/L (136-145); Total Bilirubin 0.4 mg/dL (0.15-1.2); Total Protein 6.8 g/dL (6.6-8.7)
== END 2023-09-12 14:32 | disposition home or self-care (01) ==
PROVIDERS: PCP Family Medicine; Visit Provider Internal Medicine
DX: E20.9 Hypoparathyroidism, unspecified (principal)
CPT/HCPCS: 36415; 80053; 84100

== ENCOUNTER 2023-10-17 10:12 | Outpatient (CLI) | payer MEDICAID, SELFPAY ==
[2023-10-17 10:46] LABS: Alanine Aminotransferase 18 U/L (0-33); Albumin Level 4.4 g/dL (3.5-5.2); Alkaline Phosphatase 92 U/L (35-105); Anion Gap 15.7 (5-19); Aspartate Amino Transferase 13 U/L (0-32); Blood Urea Nitrogen 15 mg/dL (6-20); Carbon Dioxide 28 mmol/L (22-29); Chloride 96 mmol/L (98-107); Globulin 2.7 g/dL (1.3-4.6); Glomerular Filtration Rate 55.6 mL/min (90-130); Glucose 99 mg/dL (65-115); Osmolality Calculated 283 mOsm/kg (285-295); Phosphorus 5.3 mg/dL (2.5-4.5); Potassium 3.7 mmol/L (3.5-5.1); Sodium 136 mmol/L (136-145); Total Bilirubin 0.7 mg/dL (0.15-1.2); Total Protein 7.1 g/dL (6.6-8.7)
== END 2023-10-17 10:13 | disposition home or self-care (01) ==
LOC: LAB 10:13
PROVIDERS: PCP Family Medicine; Visit Provider Internal Medicine
DX: E20.9 Hypoparathyroidism, unspecified (principal); E83.42 Hypomagnesemia
CPT/HCPCS: 36415; 80053; 84100

== ENCOUNTER 2023-10-31 09:41 | Outpatient (CLI) | payer MEDICAID, SELFPAY ==
[2023-10-31 10:37] LABS: Alanine Aminotransferase 8 U/L (0-33); Alkaline Phosphatase 76 U/L (35-105); Anion Gap 13.5 (5-19); Aspartate Amino Transferase 8 U/L (0-32); Blood Urea Nitrogen 10 mg/dL (6-20); Calcium 8.6 mg/dL (8.5-10.5); Carbon Dioxide 28 mmol/L (22-29); Chloride 99 mmol/L (98-107); Globulin 2.7 g/dL (1.3-4.6); Glomerular Filtration Rate 80.3 mL/min (90-130); Glucose 77 mg/dL (65-115); Magnesium 1.7 mg/dL (1.7-2.3); Osmolality Calculated 282 mOsm/kg (285-295); Phosphorus 4.6 mg/dL (2.5-4.5); Potassium 3.5 mmol/L (3.5-5.1); Sodium 137 mmol/L (136-145); Total Bilirubin 0.5 mg/dL (0.15-1.2); Total Protein 6.7 g/dL (6.6-8.7)
[2023-10-31 10:52] LABS: 25 Hydroxy Vitamin D 35 ng/mL (30-100)
== END 2023-10-31 09:42 | disposition home or self-care (01) ==
LOC: LAB 09:42
PROVIDERS: PCP Family Medicine; Visit Provider Internal Medicine
DX: E20.9 Hypoparathyroidism, unspecified (principal)
CPT/HCPCS: 36415; 80053; 82306; 83735; 84100

== ENCOUNTER → 2023-12-02 09:55 | Outpatient (BNVA) | payer MEDICAID, SELFPAY | PROVIDERS: PCP Family Medicine; Visit Provider Family Medicine Adult Medicine | DX: S99.912A Unspecified injury of left ankle, initial encounter (principal); X58.XXXA Exposure to other specified factors, initial encounter | CPT/HCPCS: 73610 ==

== ENCOUNTER → 2023-12-07 13:44 | Outpatient (BNVA) | payer MEDICAID, SELFPAY | PROVIDERS: Visit Provider Podiatrist Foot & Ankle Surgery | DX: S82.392A Other fracture of lower end of left tibia, initial encounter for closed fracture (principal); S99.912A Unspecified injury of left ankle, initial encounter; S93.432A Sprain of tibiofibular ligament of left ankle, initial encounter; W19.XXXA Unspecified fall, initial encounter | CPT/HCPCS: 73610 ==

== ENCOUNTER → 2023-12-30 11:20 | Outpatient (BNVA) | payer MEDICAID, SELFPAY | PROVIDERS: PCP Family Medicine; Visit Provider Internal Medicine | DX: E83.51 Hypocalcemia (principal); E83.39 Other disorders of phosphorus metabolism; E20.9 Hypoparathyroidism, unspecified; E83.42 Hypomagnesemia | CPT/HCPCS: 36415; 80053; 82306; 83735; 84100 ==

== ENCOUNTER → 2024-01-03 10:51 | Outpatient (BNVA) | payer MEDICAID, SELFPAY | PROVIDERS: PCP Family Medicine; Visit Provider Podiatrist Foot & Ankle Surgery | DX: S82.392D Other fracture of lower end of left tibia, subsequent encounter for closed fracture with routine healing; S93.432D Sprain of tibiofibular ligament of left ankle, subsequent encounter; W19.XXXD Unspecified fall, subsequent encounter | CPT/HCPCS: 73610 ==

== ENCOUNTER 2024-01-09 09:58 | Outpatient (CLI) | payer MEDICAID, SELFPAY ==
[2024-01-09 11:17] LABS: Anion Gap 16.5 (5-19); Blood Urea Nitrogen 13 mg/dL (6-20); Calcium 8.8 mg/dL (8.5-10.5); Carbon Dioxide 26 mmol/L (22-29); Chloride 101 mmol/L (98-107); Glomerular Filtration Rate 93.6 mL/min (90-130); Glucose 96 mg/dL (65-115); Osmolality Calculated 290 mOsm/kg (285-295); Potassium 3.5 mmol/L (3.5-5.1); Sodium 140 mmol/L (136-145)
== END 2024-01-09 09:59 | disposition home or self-care (01) ==
LOC: LAB 09:59
PROVIDERS: PCP Family Medicine; Visit Provider Internal Medicine
DX: E20.9 Hypoparathyroidism, unspecified (principal)
CPT/HCPCS: 36415; 80048

== ENCOUNTER → 2024-01-18 15:37 | Outpatient (BNVA) | payer MEDICAID, SELFPAY | PROVIDERS: PCP Family Medicine; Visit Provider Podiatrist Foot & Ankle Surgery | DX: S93.432D Sprain of tibiofibular ligament of left ankle, subsequent encounter; S82.392D Other fracture of lower end of left tibia, subsequent encounter for closed fracture with routine healing; X58.XXXD Exposure to other specified factors, subsequent encounter | CPT/HCPCS: 73610 ==

== ENCOUNTER → 2024-02-20 09:51 | Outpatient (BNVA) | payer MEDICAID, SELFPAY | PROVIDERS: PCP Family Medicine; Visit Provider Podiatrist Foot & Ankle Surgery | DX: S93.432D Sprain of tibiofibular ligament of left ankle, subsequent encounter; S82.392D Other fracture of lower end of left tibia, subsequent encounter for closed fracture with routine healing; X58.XXXD Exposure to other specified factors, subsequent encounter | CPT/HCPCS: 73610 ==

== ENCOUNTER 2024-03-31 14:37 | Emergency (ER) | payer MEDICAID, SELFPAY ==
[2024-03-31 14:42] VITALS: BP 144/100; PULSE 96; RESP 17; TEMP 36.5; O2SAT 98; BMI 37.9
--- NOTE | 2024-03-31 14:47 | ECG_ITS ---
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 Measurements Intervals [place] Rate: 101 P: 65 ID: [id number] QRS: 71 QRSD: 93 T: 57 QT: 359 QTc: 467 Interpretive Statements SINUS TACHYCARDIA ABNORMAL RHYTHM ECG Compared to ECG 07/29/2023 11:27:58 No significant changes Electronically Signed On 03-31-2024 19:56:38 CDT by Dara Alba M.D. [id number]
[2024-03-31 16:22] VITALS: BP 139/95; PULSE 80; RESP 17; O2SAT 100
[2024-03-31 17:04] LABS: Basophils % 0.3 %; Eosinophils # 0.2 10^3/uL (0.0-0.8); Eosinophils % 1.6 %; Hematocrit 46.5 % (36-47); Lymphocytes # 2.9 10^3/uL (0.8-4.8); Lymphocytes % 30.4 %; Mean Corpuscular HGB Conc 34.8 g/dL (30-55); Mean Corpuscular Hemoglobin 35.9 pg (27-33); Mean Corpuscular Volume 103.1 fl (85-98); Mean Platelet Volume 11.9 fL (7.4-10.4); Monocytes # 0.5 10^3/uL (0.2-0.9); Monocytes % 5.1 %; Neutrophils # 6.01 10^3/uL (1.8-7.7); Neutrophils % 62.4 %; Nucleated Red Blood Cells % 0 %; Platelet Count 205 10^3/cmm (157-399); Red Blood Count 4.51 10^6/uL (3.85-5.65); Red Cell Distribution Width 14.6 % (12.1-15.1); White Blood Count 9.62 10^3/uL (3.29-11.43)
[2024-03-31] MEDS: ketorolac 30 mg/mL INJ 15 MG IVP (17:11)
[2024-03-31 17:19] LABS: Alanine Aminotransferase 24 U/L (0-33); Albumin Level 4.6 g/dL (3.5-5.2); Alkaline Phosphatase 84 U/L (35-105); Anion Gap 17.8 (5-19); Aspartate Amino Transferase 20 U/L (0-32); Blood Urea Nitrogen 11 mg/dL (6-20); Calcium 8.1 mg/dL (8.5-10.5); Carbon Dioxide 25 mmol/L (22-29); Chloride 104 mmol/L (98-107); Creatinine Clr Calc Pharmacy 113.6902; Globulin 3.3 g/dL (1.3-4.6); Glomerular Filtration Rate 80.3 mL/min (90-130); Glucose 92 mg/dL (65-115); Osmolality Calculated 295 mOsm/kg (285-295); Potassium 3.8 mmol/L (3.5-5.1); Sodium 143 mmol/L (136-145); Total Bilirubin 0.3 mg/dL (0.15-1.2); Total Protein 7.9 g/dL (6.6-8.7)
[2024-03-31 18:00] LABS: Ionized Calcium 0.8 mmol/L (1.1-1.4)
[2024-03-31] MEDS: calcium gluconate 0.9% NaCL 1 GM/50 ML PREMIX IV ×2 (18:49→19:41)
[2024-03-31 18:51] VITALS: BP 156/86; PULSE 97; RESP 17; O2SAT 100
[2024-03-31 19:45] VITALS: BP 159/106; PULSE 105; RESP 16; O2SAT 99
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
[2024-03-31 20:28] VITALS: BP 168/97; RESP 16; O2SAT 98
== END 2024-03-31 20:29 | disposition home or self-care (01) ==
PROVIDERS: Emergency Provider Emergency Medicine; PCP Family Medicine
DX: E83.51 Hypocalcemia (principal); Z72.0 Tobacco use
CPT/HCPCS: 80053; 82330; 85025; 93005; 96365; 96375; 99284; J0612; J1885

== ENCOUNTER 2024-06-27 17:41 | Emergency (ER) | payer MEDICAID, SELFPAY ==
[2024-06-27 18:04] VITALS: BP 126/86; PULSE 84; RESP 18; TEMP 36.7; O2SAT 99
== END 2024-06-27 19:52 | disposition left against medical advice (07) ==
PROVIDERS: Emergency Provider Family Medicine; PCP Family Medicine
DX: Z53.21 Procedure and treatment not carried out due to patient leaving prior to being seen by health care provider (principal)
CPT/HCPCS: 36415; 80053; 82306; 83735; 84100; 84439; 84443

== ENCOUNTER 2024-06-27 22:37 | Emergency (ER) | payer MEDICAID, SELFPAY ==
[2024-06-27 22:45] VITALS: BP 130/81; PULSE 85; RESP 18; TEMP 36.9; O2SAT 95
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
[2024-06-27 23:26] VITALS: BP 120/96; PULSE 81; O2SAT 100
[2024-06-27] MEDS: metoclopramide 5 mg/mL SDV 2 mL 10 MG IVP (23:28)
[2024-06-27] MEDS: dexamethasone 10 mg/mL INJ 6 MG IVP (23:28)
[2024-06-27] MEDS: ketorolac 30 mg/mL INJ 15 MG IVP (23:28)
[2024-06-27] MEDS: sodium chloride 0.9% 250 ML IV (23:29)
[2024-06-27] MEDS: diphenhydrAMINE 50 mg/mL SDV 1mL 12.5 MG IVP (23:29)
[2024-06-27 23:30] VITALS: BP 126/95; PULSE 74; O2SAT 100
[2024-06-28] VITALS: BP 97/54; PULSE 63; O2SAT 99
== END 2024-06-28 00:15 | disposition home or self-care (01) ==
PROVIDERS: Emergency Provider Nurse Practitioner Family; PCP Family Medicine
DX: R51.9 Headache, unspecified (principal)
CPT/HCPCS: 96361; 96374; 96375; 99284; J1100; J1200; J1885; J2765; J7050